=== PATIENT | female | born 1950 | race Caucasian/White ===

== ENCOUNTER 2025-02-10 08:51 | Outpatient (REF) | payer MEDICARE, MEDICAID, SELFPAY ==
--- OUTSIDE RECORDS SUMMARY | 2025-02-10 09:34 | XMS_ITS | Encounter Summary ---
Author Organization [facility] Address [address] [place] [address] Care Team Providers Care Fish Trapper Name Role Phone Luigi Andersen DO Primary Care Provider [phone] Reason for Visit * Reason Comments Follow-up Encounter Details Date Type Department Care Team (Late st Contact Info) Description 02/02/2025 11:30 AM EST Office Visit [facility] Hematology Oncology [address] [place] [phone] Bri Carroll MD [address] [place] [address] Polycythemia vera (CMS/HCC) (Primary Dx) Social History Tobacco Use Types Packs/Day Years Used Date Smoking Tobacco: Former Cigarettes Smokeless Tobacco: Never Alcohol Use Standard Drinks/Week Comments Not Currently 0 (1 standard drink = 0.6 oz pur e alcohol) Comments Unknown Sex and Gender Information Value Date Recorded Sex Assigned at Female 12/25/2024 10:38 AM EST Legal Sex Female 2:32 AM EST Gender Identity Female 12/25/2024 10:38 AM EST Sexual Orientation Not on file documented as of this encounter Last Filed Vital Signs Vital Sign Reading Time Taken Comments Blood Pressure 144/86 02/02/2025 11:31 AM EST Pulse 69 02/02/2025 11:31 AM EST Temperature 36.4 ??C (97.5 ??F) 02/02/2025 11:[address] Respiratory Rate - - Oxygen Saturation 99% 02/02/2025 11:31 AM EST Inhaled Oxygen Concentration - - Weight 67.6 kg (149 lb) 02/02/2025 11:31 AM EST Height - - Body Mass Index 24.05 01/18/2025 9:58 AM EST documented in this encounter Progress Notes * Bri Carroll MD - 02/02/2025 11:30 AM EST ONC CANCER FOLLOW UP CHIEF COMPLAINT: Follow-up IDENTIFIER:Aurelia Fletcher is a 74 y.o. female. HPI: 74-year-old female, who has some mental health issues/anxiety etc., used to smoke more than 30 years ago, patient found to have significantly elevated hemoglobin hematocrit so referred to me for further evaluation, on the workup there is evidence that patient has primary polycythemia/polycythemia vera ROS: Has been feeling fair No significant change from previous visit of 01/18/2025 PAST MEDICAL HISTORY: Hypertension Hypothyroidism Osteoporosis Osteoarthritis Psoriasis Polycythemia Varicose vein Renal cyst Hemorrhoids Multiple pulm nodule Polycythemia vera, JAK2 positive SOCIAL HISTORY: She quit smoking in 1988 She used to drink socially He is single, lives by herself 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 FAMILY HISTORY: Noncontributory Current Outpatient Medications: calcium carbonate-vitamin D 500 mg-5 mcg (200 unit) per tablet, Take 1 tablet by mouth 1 (one) timeeach day., Disp: , Rfl: hydroCHLOROthiazide (MICROZIDE) 12.5 mg capsule, Take 1 capsule (12.5 mg total) by mouth 1 (one) time each day in the morning., Disp: , Rfl: magnesium oxide (MAG-OX) 400 mg magnesium tablet, Take 1 tablet (400 mg total) by mouth 1 (one) time each day., Disp: , Rfl: polyethylene glycol (PEG) 17 gram/dose oral powder, 17 g 1 (one) time each day., Disp: , Rfl: Allergies Allergen Reactions Codeine GI intolerance PHYSICAL EXAM: Visit Vitals BP (!) 144/86 (BP Location: Left arm, Patient Position: Sitting, BP Cuff Size: Adult) Pulse 69 Temp 36.4 ??C (97.5 ??F) (Temporal) Wt 67.6 kg (149 lb) SpO2 99% BMI 24.05 kg/m?? Smoking Status Former BSA 1.76 m?? ECOG 0-1 APPEARANCE: Alert and in no acute distress EYES: nonicteric sclera pink conjunctiva ORAL CAVITY: No erythema or exudates NECK: Neck supple, no adenopathy, HEART: normal S1 and S2 LUNG: clear to auscultation bilaterally LYMPH NODES: No palpable superficial adenopathy ABDOMEN: soft, nontender and no significant organomegaly appreciated EXTREMITIES: No edema, erythema or tenderness LABS: JAK2 mutation test positive WBC 7.8, hemoglobin 17.6 g, hematocrit 58.7% and platelet count 403 Erythropoietin level 0.8 Peripheral smear showed significant erythrocytosis and very occasional immature granulocytes IMPRESSION: 1. Polycythemia vera (CMS/HCC) 74-year-old female, here for follow-up regarding her significant elevated hemoglobin hematocrit, on my workup patient found to have positive mutation for JAK2 V617 as well as peripheral smear showed significant number of leukocytosis and erythropoietin level is only 0.8,clearly her labs suggest the patient has primary polycythemia/polycythemia vera. I explained patient and her friend who is a registered retired nurse about myeloproliferative neoplasm/polycythemia, I discussed with them about therapeutic intervention, I recommend them that she should have therapy phlebotomy to keep hemoglobin less than 16 g. Has discussed with them about therapeutic agent like hydroxyurea etc. but that would not be my preference PLAN: Will start patient on monthly therapy phlebotomy for next few months, I will check her blood count in May and make another recommendation regarding duration of therapeutic phlebotomy Bri Carroll MD documented in this encounter Plan of Treatment Upcoming Encounters Date Type Department Care Team (Late st Contact Info) Description 05/17/2025 10:15 AM EDT Office Visit [facility] Hematology Oncology [address] [place] [phone] Bri Carroll MD [address] [place] [address] Scheduled Orders Name Type Priority Associated Diagnoses Orde r Schedule CBC and differential Lab Routine Polycythemia vera (CMS/HCC) Expected: 05/05/2025, Expires: 02/02/2026 documented as of this encounter Visit Diagnoses Diagnosis Polycythemia vera (CMS/HCC)- Primary documented in this encounter Care Teams Fish Trapper Relationship Specialty Start Date End Date Luigi Andersen DO [address] [place] [phone] PCP - General Internal Medicine 10/12/24 documented as of this encounter
--- OUTSIDE RECORDS SUMMARY | 2025-02-10 09:34 | XMS_ITS | Clinical Summary ---
Author Organization [facility] Address [address] [place] [address] Phone Care Team Providers Care Weatherization Coordinator Name Role Phone Luigi Andersen DO Primary Care Provider Allergies Active Allergy Reactions Criticality Noted Date Comments Codeine GI intolerance 01/18/2025 Medications hydroCHLOROthia zide (MICROZIDE) 12.5 mg capsule Take 1 capsule (12.5 mg total) by mouth 1 (one) time each day in the morning. Active calcium carbonate-vitam in D 500 mg-5 mcg (200 unit) per tablet Take 1 tablet by mouth 1 (one) time each day. Active magnesium oxide (MAG-OX) 400 mg magnesium tablet Take 1 tablet (400 mg total) by mouth 1 (one) time each day. Active polyethylene glycol (PEG) 17 gram/dose oral powder 17 g 1 (one) time each day. Active Encounters Date Type Department Care Team Description 02/02/2025 11:30 AM EST Office Visit [facility] Hematology Oncology [address] [place] [phone] Bri Carroll MD Polycythemia vera (CMS/HCC) (Primary Dx) 01/18/2025 10:00 AM EST Office Visit [facility] Hematology Oncology [address] [place] [phone] Bri Carroll MD Elevated hemoglobin (CMS/HCC); Elevated hematocrit; Chronic myeloproliferative disease (CMS/HCC) from Last 3 Months Surgical History Surgery Date Site/Laterality Comments HYSTERECTOMY 12/02/1989 - 12/01/1990 KIDNEY SURGERY 12/02/1988 - 12/01/1989 REMOVAL VIRTUAL COLONSCOPY (DIAG.) Medical History Medical History Date Comments Lung nodule Osteoporosis Colon polyps Psoriasis Hypertension Hyperthyroidism Polycythemia Family History Medical History Relation Name Comments Bone cancer Brother Leukemia Mother Relation Name Status Comments Brother Mother Social History Tobacco Use Types Packs/Day Years Used Date Smoking Tobacco: Former Cigarettes Smokeless Tobacco: Never Tobacco Cessation:Counseling Given: Not Answered Alcohol Use Standard Drinks/Week Comments Not Currently 0 (1 standard drink = 0.6 oz pur e alcohol) Comments Unknown Sex and Gender Information Value Date Recorded Sex Assigned at Female 12/25/2024 10:38 AM EST Legal Sex Female 2:32 AM EST Gender Identity Female 12/25/2024 10:38 AM EST Sexual Orientation Not on file Obstetrics History Last Filed Vital Signs Vital Sign Reading Time Taken Comments Blood Pressure 144/86 02/02/2025 11:31 AM EST Pulse 69 02/02/2025 11:31 AM EST Temperature 36.4 ??C (97.5 ??F) 02/02/2025 11:[address] Respiratory Rate - - Oxygen Saturation 99% 02/02/2025 11:31 AM EST Inhaled Oxygen Concentration - - Weight 67.6 kg (149 lb) 02/02/2025 11:31 AM EST Height 167.6 cm (5' 6 ) 01/18/2025 9:58 AM EST Body Mass Index 24.05 01/18/2025 9:58 AM EST Plan of Treatment Upcoming Encounters Date Type Department Care Team (Late st Contact Info) Description 05/17/2025 10:15 AM EDT Office Visit [facility] Hematology Oncology [address] [place] [phone] Bri Carroll MD [address] [place] [address] Health Maintenance Due Date Last Done Comments Breast Cancer Screening 1950 DTaP,Tdap,and Td Vaccines (1 - Tdap) 1969 Pneumococcal Vaccine: 50+ Years (1 of 2 - PCV) 1969 Zoster Vaccines (1 of 2) 1969 Colorectal Cancer Screening: Colonoscopy 11/04/2022 Depression Screening 11/04/2022 Falls Risk Assessment 11/04/2022 Hepatitis C Screening 11/04/2022 Medicare Annual Wellness Visit 11/04/2022 Osteoporosis Screening (Bone Density Screening) 11/04/2022 Social Influencers of Health Screening 11/04/2022 Hypertension/CHF/CAD Annual BMP Blood Test 10/12/2025 10/12/2024 Cholesterol Screening (Lipid Panel) 10/12/2029 10/12/2024 Influenza Vaccine Completed 08/19/2024, , 09/05/2022, Additional history exists COVID-19 Vaccine Completed 08/20/2024, 05/2023, 10/23/2022, Additional history exists RSV Immunization Patients 60+ Years Old Completed 10/16/2024 HIB Vaccines Aged Out No longer eligi ble based on patient's age to complete this topic HPV Vaccines Aged Out No longer eligi ble based on patient's age to complete this topic Hepatitis A Vaccines Aged Out No long er eligible based on patient's age to complete this topic Hepatitis B Vaccines Aged Out No long er eligible based on patient's age to complete this topic IPV Vaccines Aged Out No longer eligi ble based on patient's age to complete this topic MMR Vaccines Aged Out No longer eligi ble based on patient's age to complete this topic Meningococcal ACWY Vaccine Aged Out N o longer eligible based on patient's age to complete this topic Meningococcal B Vacine Aged Out No lo nger eligible based on patient's age to complete this topic RSV Immunization Patients Under 20 months Aged Out No longer eligible based on patient's age to complete this topic Varicella Vaccines Aged Out No longer eligible based on patient's age to complete this topic Procedures Procedure Name Priority Date/Time Associated Diagnosis Comments CBC WITH AUTO DIFFERENTIAL Routine 01/18/2025 10:30 AM EST Elevated hemoglobin (CMS/HCC) Elevated hematocrit JAK2 GENE, V617F MUTATION, QUANTITATIVE, MOLECULAR STUDY Routine 01/18/2025 10:30 AM EST Elevated hemoglobin (CMS/HCC) Elevated hematocrit Chronic myeloproliferative disease (CMS/HCC) ERYTHROPOIETIN Routine 01/18/2025 10:30 AM EST Elevated hemoglobin (CMS/HCC) Elevated hematocrit CBC AND DIFFERENTIAL Routine 01/18/2025 10:30 AM EST Elevated hemoglobin (CMS/HCC) Elevated hematocrit CBC WITH AUTO DIFFERENTIAL Routine 12/14/2024 9:21 AM EST Hyperthyroidism Polycythemia THYROGLOBULIN ANTIBODY Routine 9:21 AM EST Hyperthyroidism Polycythemia TRIIODOTHYRONINE TOTAL Routine 9:21 AM EST Hyperthyroidism Polycythemia THYROXINE FREE Routine 12/14/2024 9:21 AM EST Hyperthyroidism Polycythemia CBC AND DIFFERENTIAL Routine 12/14/2024 9:21 AM EST Hyperthyroidism Polycythemia THYROID STIMULATING HORMONE Routine 12/14/2024 9:21 AM EST Hyperthyroidism Polycythemia COMPREHENSIVE METABOLIC PANEL Routine 10/12/2024 10:12 AM EST Laboratory tests ordered as part of a complete physical exam (CPE) IGT (impaired glucose tolerance) HTN (hypertension) Urinary urgency LIPID PANEL WITH REFLEX TO DIRECT LDL Routine 10/12/2024 10:12 AM EST Laboratory tests ordered as part of a complete physical exam (CPE) IGT (impaired glucose tolerance) HTN (hypertension) Urinary urgency from Last 3 Months or Most Recently Relevant to Health Maintenance Results * JAK2 gene, V617F mutation, quantitative, molecular study (01/18/2025 10:30 AM EST) Scan Result See Scanned Result 01/25/2025 7:23 AM EST [facility] Blood Venous blood specimen / Unknown Venipuncture / Unknown 01/18/2025 10:30 AM EST 01/18/2025 11:21 AM EST us Bri Carroll MD LAB MOLECULAR DIAGNOSTICS OR DERABLES Final Result [facility] * (ABNORMAL) CBC auto differential (01/18/2025 10:30 AM EST) Only the most recent of2 resultswithin the time period is included. [facility] Signature WBC 7.8 4.8 - 10.8 K/mcL LAB HEMETOLOGY METHOD 01/18/2025 11:45 AM [facility] RBC 6.90(H) 3.80 - 4.80 M/mcL LAB HEMETOLOGY METHOD 01/18/2025 11:45 AM [facility] Hemoglobin 17.6(H) 11.5 - 16.0 g/dL LAB HEMETOLOGY METHOD 01/18/2025 11:45 AM [facility] Hematocrit 58.7(H) 35.0 - 47.0 % LAB HEMETOLOGY METHOD 01/18/2025 11:45 AM [facility] MCV 84.7 79.0 - 98.0 FL LAB HEMETOLOGY METHOD 01/18/2025 11:45 AM [facility] MCH 25.4(L) 27.0 - 32.0 pcg LAB HEMETOLOGY METHOD 01/18/2025 11:45 AM [facility] MCHC 30.0(L) 32.0 - 37.0 g/dL LAB HEMETOLOGY METHOD 01/18/2025 11:45 AM [facility] RDW 18.5(H) 11.0 - 15.0 % LAB HEMETOLOGY METHOD 01/18/2025 11:45 AM [facility] Platelets 403(H) 130 - 400 K/mcL LAB HEMETOLOGY METHOD 01/18/2025 11:45 AM [facility] MPV 10.6 7.0 - 11.0 FL LAB HEMETOLOGY METHOD 01/18/2025 11:45 AM [facility] NRBC 0.0 <1.0 % LAB HEMETOLOGY METHOD 01/18/2025 11:45 AM [facility] NRBC Absolute 0.00 <0.10 K/mcL LAB HEMETOLOGY METHOD 01/18/2025 11:45 AM [facility] Neutrophils Relative 63.9 % LAB HEMETOLOGY METHOD 01/18/2025 11:45 AM [facility] Lymphocytes Relative 22.7 % LAB HEMETOLOGY METHOD 01/18/2025 11:45 AM [facility] Monocytes Relative 9.7 % LAB HEMETOLOGY METHOD 01/18/2025 11:45 AM [facility] Eosinophils Relative 2.4 % LAB HEMETOLOGY METHOD 01/18/2025 11:45 AM [facility] Basophils Relative 0.8 % LAB HEMETOLOGY METHOD 01/18/2025 11:45 AM [facility] Immature Granulocytes Relative 0.5 % LAB HEMETOLOGY METHOD 01/18/2025 11:45 AM [facility] Neutrophils Absolute 4.97 1.50 - 7.00 K/mcL LAB HEMETOLOGY METHOD 01/18/2025 11:45 AM [facility] Lymphocytes Absolute 1.76 1.00 - 5.00 K/mcL LAB HEMETOLOGY METHOD 01/18/2025 11:45 AM [facility] Monocytes Absolute 0.75 0.20 - 1.00 K/mcL LAB HEMETOLOGY METHOD 01/18/2025 11:45 AM [facility] Eosinophils Absolute 0.19 0.00 - 0.50 K/mcL LAB HEMETOLOGY METHOD 01/18/2025 11:45 AM [facility] Basophils Absolute 0.06 0.00 - 0.20 K/mcL LAB HEMETOLOGY METHOD 01/18/2025 11:45 AM [facility] Immature Granulocytes Absolute 0.04(H) 0.00 - 0.03 K/mcL LAB HEMETOLOGY METHOD 01/18/2025 11:45 AM [facility] Blood Venous blood specimen / Unknown Venipuncture / Unknown 01/18/2025 10:30 AM EST 01/18/2025 11:21 AM EST Bri Carroll MD LAB BLOOD ORDERABLES Final R esult Performing Organization Address [facility]/ZIP Co de Phone Number [facility] ([facility]) [facility] [address] [place] [address], * (ABNORMAL) Erythropoietin (01/18/2025 10:30 AM EST) Erythropoietin 0.8(L) 2.6 - 18.5 mIU/mL 01/20/2025 10:28 AM EST [facility] Comment: Test performed at [facility], [address] , [place], [place] ??[address] ? [phone] Cassie Cowan MD, PhD - [employer] Blood Venous blood specimen / Unknown Venipuncture / Unknown 01/18/2025 10:30 AM EST 01/18/2025 11:21 AM EST Bri Carroll MD LAB BLOOD ORDERABLES Final R esult Performing Organization Address [facility] Co de Phone Number [facility] [address] [place] [address] * Thyroglobulin antibody (12/14/2024 9:21 AM EST) Antithyroglobulin Ab <15.0 <=60.0 I Unit/mL LAB CHEMISTRY METHOD 12/14/2024 4:47 PM EST [facility] Blood Venous blood specimen / Unknown Venipuncture / Unknown 12/14/2024 9:21 AM EST 12/14/2024 9:21 AM EST Nicolas Malcolm LAB BLOOD ORDERABLES Final Resul t [facility] [address] [place] [address], * Triiodothyronine total (12/14/2024 9:21 AM EST) T3, Total 126.94 60.00 - 181.00 ng/dL LAB CHEMISTRY METHOD 12/14/2024 11:55 AM EST [facility] Blood Venous blood specimen / Unknown Venipuncture / Unknown 12/14/2024 9:21 AM EST 12/14/2024 9:21 AM EST Nicolas Malcolm LAB BLOOD ORDERABLES Final Resul t [facility] [address] [place] [address], * Thyroid stimulating hormone (12/14/2024 9:21 AM EST) TSH 0.63 0.40 - 4.00 mcIU/mL LAB CHEMISTRY METHOD 12/14/2024 11:56 AM EST [facility] Blood Venous blood specimen / Unknown Venipuncture / Unknown 12/14/2024 9:21 AM EST 12/14/2024 9:21 AM EST Nicolas Malcolm LAB BLOOD ORDERABLES Final Resul t [facility] [address] [place] [address], [place] [phone] * Thyroxine free (12/14/2024 9:21 AM EST) Free T4 1.28 0.70 - 1.80 ng/dL LAB CHEMISTRY METHOD 12/14/2024 1:32 PM EST [facility] Blood Venous blood specimen / Unknown Venipuncture / Unknown 12/14/2024 9:21 AM EST 12/14/2024 9:21 AM EST Nicolas Yun LAB BLOOD ORDERABLES Final Resul t Performing Organization Address City/[facility]/ZIP Co de Phone Number [facility] [address] [place] [address], [place] [phone] * Lipid panel with reflex to direct LDL (10/12/2024 10:12 AM EST) Cholesterol 166 0 - 200 mg/dL LAB CHEMISTRY METHOD 10/12/2024 12:02 PM [facility] Triglycerides 97 0 - 150 mg/dL LAB CHEMISTRY METHOD 10/12/2024 12:02 PM [facility] HDL 77 >=40 mg/dL LAB CHEMISTRY METHOD 10/12/2024 12:02 PM [facility] LDL Calculated 70 0 - 100 mg/dL LAB CHEMISTRY METHOD 10/12/2024 12:02 PM [facility] VLDL Cholesterol Anthony 19.4 mg/dL LAB CHEMISTRY METHOD 10/12/2024 12:02 PM [facility] Non HDL Chol. (LDL+VLDL) 89 <145 mg/dL LAB CHEMISTRY METHOD 10/12/2024 12:02 PM [facility] Chol/HDL Ratio 2.2 0.0 - 4.4 LAB CHEMISTRY METHOD 10/12/2024 12:02 PM [facility] Blood Venous blood specimen / Unknown Venipuncture / Unknown 10/12/2024 10:12 AM EST 10/12/2024 10:13 AM EST Nicolas Yun LAB BLOOD ORDERABLES Final Resul t Performing Organization Address [facility]/ZIP Co de Phone Number [facility] [address] [place] [address], [place] [phone] * (ABNORMAL) Comprehensive metabolic panel (10/12/2024 10:12 AM EST) Sodium 137 133 - 145 mmol/L LAB CHEMISTRY METHOD 10/12/2024 12:02 PM [facility] Potassium 4.6 3.5 - 5.5 mmol/L LAB CHEMISTRY METHOD 10/12/2024 12:02 PM [facility] Chloride 101 96 - 110 mmol/L LAB CHEMISTRY METHOD 10/12/2024 12:02 PM [facility] CO2 30 21 - 32 mmol/L LAB CHEMISTRY METHOD 10/12/2024 12:02 PM [facility] Anion Gap 6 3 - 11 LAB CHEMISTRY METHOD 10/12/2024 12:02 PM [facility] Glucose 86 70 - 100 mg/dL LAB CHEMISTRY METHOD 10/12/2024 12:02 PM [facility] BUN 22 5 - 25 mg/dL LAB CHEMISTRY METHOD 10/12/2024 12:02 PM [facility] Creatinine 0.87 0.50 - 1.10 mg/dL LAB CHEMISTRY METHOD 10/12/2024 12:02 PM [facility] eGFR 70 >=60 mL/min/1. 73m2 LAB CHEMISTRY METHOD 10/12/2024 12:02 PM [facility] Comment:Calculation based on the??Chronic Kidney Disease Epidemiology Collaboration (CKD-EPI) equation refit??without adjustment for race. BUN/Creatinine Ratio 25.3 LAB CHEMISTRY METHOD 10/12/2024 12:02 PM [facility] Calcium 10.9(H) 8.5 - 10.5 mg/dL LAB CHEMISTRY METHOD 10/12/2024 12:02 PM [facility] AST (SGOT) 21 10 - 42 unit/L LAB CHEMISTRY METHOD 10/12/2024 12:02 PM [facility] ALT (SGPT) 19 10 - 60 unit/L LAB CHEMISTRY METHOD 10/12/2024 12:02 PM [facility] Alkaline Phosphatase 91 42 - 121 unit/L LAB CHEMISTRY METHOD 10/12/2024 12:02 PM EST [facility] Total Protein 6.8 6.0 - 8.0 g/dL LAB CHEMISTRY METHOD 10/12/2024 12:02 PM EST [facility] Albumin 3.9 3.2 - 5.0 g/dL LAB CHEMISTRY METHOD 10/12/2024 12:02 PM EST [facility] Total Bilirubin 1.0 0.0 - 1.4 mg/dL LAB CHEMISTRY METHOD 10/12/2024 12:02 PM EST [facility] Blood Venous blood specimen / Unknown Venipuncture / Unknown 10/12/2024 10:12 AM EST 10/12/2024 10:13 AM EST us Nicolas Malcolm LAB BLOOD ORDERABLES Final Resul t [facility] [address] [place] [address], from Last 3 Months or Most Recently Relevant to Health Maintenance Insurance MEDICAID - [place] MEDICARE Care Teams Weatherization Coordinator Relationship Specialty Start Date End Date Luigi Andersen DO [address] [place] [address] [phone] PCP - General Internal Medicine 10/12/24
--- OUTSIDE RECORDS SUMMARY | 2025-02-10 09:35 | XMS_ITS ---
Author Name [facility] Organization Unknown History of Medication Use Medication Directions Dispensed Refills Start Date End Date Stat Procto-Med HC 2.5 % topical cream perineal applicator active oxycodone 5 mg tablet 02/26/2024 completed Allergies Allergen Reaction Severity Comment Documented Date Source Statu s CODEINE ENS_AONECT Problems Problem Status Onset Date Problem Type Date of Resoluti on Source Synovitis active 2024-02-26 ProblemAct ENS_AONE CT Encounters Encounter Type Encounter Reason Primary Diagnosis Location Date Ambulatory [facility] [place] 02/26/2024 Ambulatory [facility] [place] 02/21/2024
--- OUTSIDE RECORDS SUMMARY | 2025-02-10 09:35 | XMS_ITS | Encounter Summary ---
Author Organization [facility] Address [address] [place] [address] Care Team Providers Care Vice President Global Advertising Sales Name Role Phone NathalyLuigi Primary Care Provider [phone] Reason for Visit * Reason Comments Consult * Consultation (Routine) - Closed Specialty Diagnoses / Procedures Referred By Alli lee Referred To Contact Hematology and Oncology Diagnoses Elevated hemoglobin (CMS/HCC) Elevated hematocrit Luigi Andersen DO [address] [place] [phone] Phone: tel: fax: Referral ID Status Reason Start Date Expiration Date V isits Requested Visits Authorized [id number] Closed Specialty Services Required 12/28/2024 12/28/2025 1 1 Encounter Details Date Type Department Care Team (Latest Contact Info) Description 01/18/2025 10:00 AM EST Office Visit [facility] Hematology Oncology [address] [place] [phone] Bri Carroll MD [address] [place] [address] Elevated hemoglobin (CMS/HCC); Elevated hematocrit; Chronic myeloproliferative disease (CMS/HCC) Social History Tobacco Use Types Packs/Day Years [...] Sign Reading Time Taken Comments Blood Pressure 154/83 01/18/2025 9:58 AM EST Pulse 69 01/18/2025 9:58 AM EST Temperature 36.7 ??C (98.1 ??F) 01/18/2025 9:58 AM ES T Respiratory Rate - - Oxygen Saturation 99% 01/18/2025 9:58 AM EST Inhaled Oxygen Concentration - - Weight 67.1 kg (148 lb) 01/18/2025 9:58 AM EST Height 167.6 cm (5' 6 ) 01/18/2025 9:58 AM EST Body Mass Index 23.89 01/18/2025 9:58 AM EST documented in this encounter Progress Notes * Bri Carroll MD - 01/18/2025 10:00 AM EST ONC CANCER INITIAL VISIT Dear Nicolas, Thank you very much for referring this patient for consultation. HPI: Patient is a 74-year-old female, who quit smoking in 1988, patient had significant osteoarthritis, anxiety etc., patient found to have persistently elevated hemoglobin hematocrit of unclearetiology so patient referred to me to rule out any significant myeloproliferative disease. Patient denies any prior history of history of hematological issues ROS: GENERAL: No anorexia, early satiety, fever, chills, night sweats or any significant fatigue NECK: No lumps, goiter, pain or significant neck swelling RESPIRATORY: No cough or shortness of breath CARDIOVASCULAR: No chest pain. GI: No abdominal discomfort, blood in stools or black stools MUSCULOSKELETAL: Generalized arthritis specially in the left shoulder HEMATOLOGY/LYMPHOLOGY No prolonged bleeding, easy bruisability or swollen nodes Other Systems review is non contributory PAST MEDICAL HISTORY: Hypertension Hypothyroidism Osteoporosis Osteoarthritis Psoriasis Polycythemia Varicose vein Renal cyst Hemorrhoids Multiple pulm nodule PAST SURGICAL HISTORY: Past Surgical History: Procedure Laterality Date HYSTERECTOMY 1989 KIDNEY SURGERY 1988 REMOVAL VIRTUAL COLONSCOPY (DIAG.) SOCIAL HISTORY: She quit smoking in 1988 She used to drink socially He is single, lives by herself 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 Smoking Status Former BSA 1.76 m?? ECOG 0-1 APPEARANCE: Alert and oriented in no acute distress EYES: nonicteric sclera pink conjunctiva ORAL CAVITY: No erythema or exudates NECK: Neck supple, no cervical supraclavicular adenopathy, HEART: normal S1 and S2 LUNG: clear to auscultation bilaterally LYMPH NODES: No palpable superficial adenopathy ABDOMEN: soft, nontender and no splenomegaly/organomegaly appreciated. EXTREMITIES: No significant edema, erythema or tenderness LABS: Lab Results Component Value Date WBC 7.8 12/14/2024 HGB 17.2 (H) 12/14/2024 HCT 57.2 (H) 12/14/2024 MCV 88.1 12/14/2024 PLT 385 12/14/2024 ASSESSMENT 1. Elevated hemoglobin (CMS/HCC) 2. Elevated hematocrit Patient is 74-year-old female, who found to have mild to moderate persistent elevated hemoglobin hematocrit in last few complete blood count so patient referred to me to rule out myeloproliferative neoplasm, I told patient possible differential diagnosis of her elevated hemoglobin and recurrent include 1. Neoplasm/polycythemia vera 2. Anxiety stress aches and pain etc. 3. History of smoking, pulmonary nodule, occult malignancy etc. I told patient I would like to review peripheral smear as well as check erythropoietin level, JAK2 mutation test etc. and see her back in next week for any further intervention, I gave her reassurance that I doubt she have any significant myeloproliferative neoplasm PLAN: Above labs today, return to office in couple weeks for any further intervention Bri Carroll MD cc: Luigi Andersen DO documented in this encounter Plan of Treatment Upcoming Encounters Date Type Department Care Team (Late st Contact Info) Description 05/17/2025 10:15 AM EDT Office Visit [facility] Hematology Oncology [address] [place] [address] Bri Carroll MD [address] [place] [address] documented as of this encounter Results * JAK2 gene, V617F mutation, quantitative, molecular study (01/18/2025 10:30 AM EST) Scan Result See Scanned Result 01/25/2025 7:23 AM EST [facility] Blood Venous blood specimen / Unknown Venipuncture / Unknown 01/18/2025 10:30 AM EST 01/18/2025 11:21 AM EST Bri Carroll MD LAB MOLECULAR DIAGNOSTICS OR DERABLES Final Result [facility] * (ABNORMAL) Erythropoietin (01/18/2025 10:30 AM EST) Erythropoietin 0.8(L) 2.6 - 18.5 mIU/mL 01/20/2025 10:28 AM EST [facility] Comment: Test performed at [facility], [address], [place], [place] [address] ? [phone] Cassie Cowan MD, PhD - Wearing Apparel Presser Blood Venous blood specimen / Unknown Venipuncture / Unknown 01/18/2025 10:30 AM EST 01/18/2025 11:21 AM EST us Bri Carroll MD LAB BLOOD ORDERABLES Final R [place] [address] documented in this encounter Visit Diagnoses Diagnosis Elevated hemoglobin (CMS/HCC) Elevated hematocrit Chronic myeloproliferative disease (CMS/HCC) documented in this encounter Historical Medications * This list may reflect changes made after this encounter. polyethylene glycol (PEG) 17 gram/dose oral powder 17 g 1 (one) time each day. magnesium oxide (MAG-OX) 400 mg magnesium tablet Take 1 tablet (400 mg total) by mouth 1 (one) time each day. calcium carbonate-vitamin D 500 mg-5 mcg (200 unit) per tablet Take 1 tablet by mouth 1 (one) time each day. hydroCHLOROthiazi de (MICROZIDE) 12.5 mg capsule Take 1 capsule (12.5 mg total) by mouth 1 (one) time each day in the morning. added in this encounter Orders Outpatient Referral Count Last Ordered Date Fir st Ordered Date AMB REFERRAL TO HEMATOLOGY / ONCOLOGY 1 documented in this encounter Care Teams Vice President Global Advertising Sales Relationship Specialty Start Date End Date Luigi Andersen DO [address] [place] [phone] PCP - General Internal Medicine 10/12/24 documented as of this encounter
== END 2025-02-10 08:52 | disposition home or self-care (01) ==
LOC: HO.BBR 08:51
PROVIDERS: PCP Internal Medicine; Visit Provider Internal Medicine
DX: D45 Polycythemia vera (principal)
CPT/HCPCS: 85014; 85018; 99195

== ENCOUNTER 2025-03-18 08:56 | Outpatient (REF) | payer MEDICARE, MEDICAID, SELFPAY ==
--- OUTSIDE RECORDS SUMMARY | 2025-03-18 09:42 | XMS_ITS | Clinical Summary ---
Author Organization [address] [facility] Address [address] [place] [address] Phone Care Team Providers Care Fit Model Name Role Phone Luigi Andersen DO Primary Care Provider [phone] Allergies Active Allergy Reactions Criticality Noted Date [...] Encounters Date Type Department Care Team Description 02/18/2025 Telephone Gastroenterology - [address] [phone] Marva Paez MD CONSULT 02/02/2025 11:30 AM EST Office Visit [facility] Hematology Oncology [address] [place] [phone] Bri Carroll MD Polycythemia vera (CMS/HCC V24, CMS/HCC V28) (Primary Dx) 01/18/2025 10:00 AM EST Office Visit [facility] Hematology Oncology [address] [place] [phone] Bri Carroll MD Elevated hemoglobin (CMS/HCC V24); Elevated hematocrit; Chronic myeloproliferative disease (CMS/HCC V24, CMS/HCC V28) from Last 3 Months Surgical History Surgery [...] Care Team (Late st Contact Info) Description 03/29/2025 10:10 AM EDT Office Visit Gastroenterology - 299 [facility] [address] [phone] Anahy Bustamante, OIL PUMP STATION OPERATOR CHIEF [address] [address] 05/17/2025 10:15 AM EDT Office Visit [facility] Hematology Oncology [address] [place] [phone] Bri Carroll MD [address] [place] [address] Health Maintenance Due Date Last Done Comments DTaP,Tdap,and Td Vaccines (1 - Tdap) 1969 [...] 05/2023, 10/23/2022, Additional history exists RSV Immunization Adult Patients Completed 10/16/2024 HIB Vaccines Aged Out No [...] age to complete this topic Meningococcal B Vaccine Aged Out No l onger eligible based on patient's age to complete this topic RSV Immunization Patients Under 20 months Aged Out No longer eligible based on patient's age to complete this topic Varicella Vaccines Aged Out No longer eligible based on patient's age to complete this topic Procedures Procedure Name Priority Date/Time Associated Diagnosis Comments CBC WITH AUTO DIFFERENTIAL Routine 01/18/2025 10:30 AM EST Elevated hemoglobin (CMS/HCC V24) Elevated hematocrit JAK2 GENE, V617F MUTATION, QUANTITATIVE, MOLECULAR STUDY Routine 01/18/2025 10:30 AM EST Elevated hemoglobin (CMS/HCC V24) Elevated hematocrit Chronic myeloproliferative disease (CMS/HCC V24, CMS/HCC V28) ERYTHROPOIETIN Routine 01/18/2025 10:30 AM EST Elevated hemoglobin (CMS/HCC V24) Elevated hematocrit CBC AND DIFFERENTIAL Routine 01/18/2025 10:30 AM EST Elevated hemoglobin (CMS/HCC V24) Elevated hematocrit COMPREHENSIVE METABOLIC PANEL Routine 10/12/2024 10:12 AM [...] quantitative, molecular study (01/18/2025 10:30 AM EST) Pathologist [facility] Scan Result See Scanned Result 01/25/2025 7:23 AM EST [facility] Blood Venous blood specimen / Unknown Venipuncture / Unknown 01/18/2025 10:30 AM EST 01/18/2025 11:21 AM EST us Bri Carroll MD LAB MOLECULAR DIAGNOSTICS OR DERABLES Final Result [facility] * (ABNORMAL) CBC auto differential (01/18/2025 10:30 AM EST) Pathologist [facility] WBC 7.8 4.8 - 10.8 K/mcL LAB HEMETOLOGY METHOD 01/18/2025 11:45 AM [facility] RBC 6.90(H) 3.80 - 4.80 M/mcL LAB HEMETOLOGY METHOD 01/18/2025 11:45 AM [facility] Hemoglobin 17.6(H) 11.5 - 16.0 g/dL LAB HEMETOLOGY METHOD 01/18/2025 11:45 AM [facility] Hematocrit 58.7(H) 35.0 - 47.0 % LAB HEMETOLOGY METHOD 01/18/2025 11:45 AM [facility] MCV 84.7 79.0 - 98.0 FL LAB HEMETOLOGY METHOD 01/18/2025 11:45 AM [facility] MCH 25.4(L) 27.0 - 32.0 pcg LAB HEMETOLOGY METHOD 01/18/2025 11:45 AM [facility] MCHC 30.0(L) 32.0 - 37.0 g/dL LAB HEMETOLOGY METHOD 01/18/2025 11:45 AM [facility] RDW 18.5(H) 11.0 - 15.0 % LAB HEMETOLOGY METHOD 01/18/2025 11:45 AM [facility] Platelets 403(H) 130 - 400 K/mcL LAB HEMETOLOGY METHOD 01/18/2025 11:45 AM [facility] MPV 10.6 7.0 - 11.0 FL LAB HEMETOLOGY METHOD 01/18/2025 11:45 AM [facility] NRBC 0.0 <1.0 % LAB HEMETOLOGY METHOD 01/18/2025 11:45 AM [facility] NRBC Absolute 0.00 <0.10 K/mcL LAB HEMETOLOGY METHOD 01/18/2025 11:45 AM [facility] Neutrophils Relative 63.9 % LAB HEMETOLOGY METHOD 01/18/2025 11:45 AM [facility] Lymphocytes Relative 22.7 % LAB HEMETOLOGY METHOD 01/18/2025 11:45 AM [facility] Monocytes Relative 9.7 % LAB HEMETOLOGY METHOD 01/18/2025 11:45 AM [facility] Eosinophils Relative 2.4 % LAB HEMETOLOGY METHOD 01/18/2025 11:45 AM [facility] Basophils Relative 0.8 % LAB HEMETOLOGY METHOD 01/18/2025 11:45 AM [facility] Immature Granulocytes Relative 0.5 % LAB HEMETOLOGY METHOD 01/18/2025 11:45 AM [facility] Neutrophils Absolute 4.97 1.50 - 7.00 K/mcL LAB HEMETOLOGY METHOD 01/18/2025 11:45 AM [facility] Lymphocytes Absolute 1.76 1.00 - 5.00 K/mcL LAB HEMETOLOGY METHOD 01/18/2025 11:45 AM [facility] Monocytes Absolute 0.75 0.20 - 1.00 K/mcL LAB HEMETOLOGY METHOD 01/18/2025 11:45 AM [facility] Eosinophils Absolute 0.19 0.00 - 0.50 K/mcL LAB HEMETOLOGY METHOD 01/18/2025 11:45 AM [facility] Basophils Absolute 0.06 0.00 - 0.20 K/mcL LAB HEMETOLOGY METHOD 01/18/2025 11:45 AM [facility] Immature Granulocytes Absolute 0.04(H) 0.00 - 0.03 K/mcL LAB HEMETOLOGY METHOD 01/18/2025 11:45 AM [facility] Blood Venous blood specimen / Unknown Venipuncture / Unknown 01/18/2025 10:30 AM EST 01/18/2025 11:21 AM EST us Bri Carroll MD LAB BLOOD ORDERABLES Final R esult [facility]) [facility] [address] [place] [address], [place] [phone] * (ABNORMAL) Erythropoietin (01/18/2025 10:30 AM EST) Erythropoietin 0.8(L) 2.6 - 18.5 mIU/mL 01/20/2025 10:28 AM EST [facility] Comment: Test performed at [facility], [address], [place], [place] [address] ? [phone] Cassie Cowan MD, PhD - Prefabricated Houses Trimmer Blood Venous blood specimen / Unknown Venipuncture / Unknown 01/18/2025 10:30 AM EST 01/18/2025 11:21 AM EST Bri Carroll MD LAB BLOOD ORDERABLES Final R esult [facility] [address] [place] [address] * Lipid panel with reflex to direct LDL (10/12/2024 10:12 AM EST) Cholesterol 166 0 - 200 mg/dL LAB CHEMISTRY METHOD 10/12/2024 12:02 PM [facility] Triglycerides 97 0 - 150 mg/dL LAB CHEMISTRY METHOD 10/12/2024 12:02 PM EST [facility] HDL 77 >=40 mg/dL LAB CHEMISTRY METHOD 10/12/2024 12:02 PM [facility] LDL Calculated 70 0 - 100 mg/dL LAB CHEMISTRY METHOD 10/12/2024 12:02 PM [facility] VLDL Cholesterol Anthony 19.4 mg/dL LAB CHEMISTRY METHOD 10/12/2024 12:02 PM [facility] Non HDL Chol. (LDL+VLDL) 89 <145 mg/dL LAB CHEMISTRY METHOD 10/12/2024 12:02 PM [facility] Chol/HDL Ratio 2.2 0.0 - 4.4 LAB CHEMISTRY METHOD 10/12/2024 12:02 PM [facility] Blood Venous blood specimen / Unknown Venipuncture / Unknown 10/12/2024 10:12 AM EST 10/12/2024 10:13 AM EST us Nicolas Malcolm LAB BLOOD ORDERABLES Final Resul t [facility] [address] [place] [address], * (ABNORMAL) Comprehensive metabolic panel (10/12/2024 10:12 AM EST) Sodium 137 133 - 145 mmol/L LAB CHEMISTRY METHOD 10/12/2024 12:02 PM [facility] Potassium 4.6 3.5 - 5.5 mmol/L LAB CHEMISTRY METHOD 10/12/2024 12:02 PM [facility] Chloride 101 96 - 110 mmol/L LAB CHEMISTRY METHOD 10/12/2024 12:02 PM [facility] CO2 30 21 - 32 mmol/L LAB CHEMISTRY METHOD 10/12/2024 12:02 PM [facility] Anion Gap 6 3 - 11 LAB CHEMISTRY METHOD 10/12/2024 12:02 PM [facility] Glucose 86 70 - 100 mg/dL LAB CHEMISTRY METHOD 10/12/2024 12:02 PM [facility] BUN 22 5 - 25 mg/dL LAB CHEMISTRY METHOD 10/12/2024 12:02 PM [facility] Creatinine 0.87 0.50 - 1.10 mg/dL LAB CHEMISTRY METHOD 10/12/2024 12:02 PM [facility] eGFR 70 >=60 mL/min/1. 73m2 LAB CHEMISTRY METHOD 10/12/2024 12:02 PM [facility] Comment:Calculation based on the??Chronic Kidney Disease Epidemiology Collaboration (CKD-EPI) equation refit??without adjustment for race. BUN/Creatinine Ratio 25.3 LAB CHEMISTRY METHOD 10/12/2024 12:02 PM [facility] Calcium 10.9(H) 8.5 - 10.5 mg/dL LAB CHEMISTRY METHOD 10/12/2024 12:02 PM [facility] AST (SGOT) 21 10 - 42 unit/L LAB CHEMISTRY METHOD 10/12/2024 12:02 PM [facility] ALT (SGPT) 19 10 - 60 unit/L LAB CHEMISTRY METHOD 10/12/2024 12:02 PM [facility] Alkaline Phosphatase 91 42 - 121 unit/L LAB CHEMISTRY METHOD 10/12/2024 12:02 PM [facility] Total Protein 6.8 6.0 - 8.0 g/dL LAB CHEMISTRY METHOD 10/12/2024 12:02 PM [facility] Albumin 3.9 3.2 - 5.0 g/dL LAB CHEMISTRY METHOD 10/12/2024 12:02 PM [facility] Total Bilirubin 1.0 0.0 - 1.4 mg/dL LAB CHEMISTRY METHOD 10/12/2024 12:02 PM [facility] Blood Venous blood specimen / Unknown Venipuncture / Unknown 10/12/2024 10:12 AM EST 10/12/2024 10:13 AM EST us Nicolas Malcolm LAB BLOOD ORDERABLES Final Resul t [facility] [address] [place] [address], from Last 3 Months or Most Recently Relevant to Health Maintenance Insurance MEDICAID - [place] MEDICARE Care Teams Fit Model Relationship Specialty Start Date End Date Luigi Andersen DO [address] [place] [phone] PCP - General Internal Medicine 10/12/24
== END 2025-03-18 08:57 | disposition home or self-care (01) ==
LOC: HO.BBR 08:56
PROVIDERS: Visit Provider Internal Medicine
DX: D45 Polycythemia vera (principal)
CPT/HCPCS: 85018; 99195

== ENCOUNTER 2025-04-19 09:06 | Outpatient (REF) | payer MEDICARE, MEDICAID, SELFPAY ==
--- OUTSIDE RECORDS SUMMARY | 2025-04-19 09:21 | XMS_ITS | Clinical Summary ---
Author Organization [address] Address [address] [place] [address] Phone Care Team Providers Care Concrete Fence Builder Name Role Phone Luigi Andersen DO Primary Care Provider [phone] Allergies Active Allergy Reactions Criticality Noted Date [...] Encounters Date Type Department Care Team Description 03/29/2025 10:10 AM EDT Office Visit Gastroenterology - [address] [phone] Anahy Bustamante, SAMMI Adenomatous polyp of colon, unspecified part of colon (Primary Dx) 02/18/2025 Telephone Gastroenterology - [address] [phone] Marva Paez MD CONSULT 02/02/2025 11:30 AM EST Office Visit [facility] Hematology Oncology [address] [place] [phone] Bri Carroll MD Polycythemia vera (CMS/HCC V24, CMS/HCC V28) (Primary Dx) from Last 3 Months Surgical History Surgery [...] EST Inhaled Oxygen Concentration - - Weight 65.8 kg (145 lb) 03/29/2025 10:01 AM EDT Height 167.6 cm (5' 6 ) 03/29/2025 10:01 AM EDT Body Mass Index 23.4 03/29/2025 10:01 AM EDT Plan of Treatment Upcoming Encounters Date Type Department Care Team (Late st Contact Info) Description 05/17/2025 10:15 AM EDT Office Visit [facility] Hematology Oncology [address] [place] [phone] Bri Carroll MD [address] [place] [address] 06/08/2025 11:00 AM EDT Appointment [facility] Endoscopy [address] [place] [phone] Marva Paez MD [address] [place] [address] Health Maintenance Due Date Last Done Comments DTaP,Tdap,and Td Vaccines (1 - Tdap) 1969 Pneumococcal Vaccine: 50+ Years (1 of 2 - PCV) 1969 Zoster Vaccines (1 of 2) 1969 Depression Screening 11/04/2022 Falls Risk Assessment 11/04/2022 Hepatitis C Screening 11/04/2022 Medicare Annual Wellness Visit 11/04/2022 Osteoporosis Screening (Bone Density Screening) 11/04/2022 Social Influencers of Health Screening 11/04/2022 COVID-19 Vaccine (7 - Pfizer risk season) 2025 08/20/2024, 09/06/2023, 10/23/2022, Additional history exists Hypertension/CHF/CAD Annual BMP Blood Test 10/12/2025 10/12/2024 Cholesterol Screening (Lipid Panel) 10/12/2029 10/12/2024 Colorectal Cancer Screening: Colonoscopy 03/31/2035 03/31/2025 Influenza Vaccine Completed 08/19/2024, , 09/05/2022, Additional history exists RSV Immunization Adult Patients [...] Procedure Name Priority Date/Time Associated Diagnosis Comments EXTERNAL COLONOSCOPY REPORT Routine 03/31/2025 2:53 PM EDT COMPREHENSIVE METABOLIC PANEL Routine 10/12/2024 10:12 AM [...] Recently Relevant to Health Maintenance Results * External Colonoscopy Report (03/31/2025 2:53 PM EDT) Anatomical Region Laterality Modality Endoscopy us Historical Provider GI~PROCEDURE ORDERABLES F inal Result * Lipid panel with reflex to direct LDL (10/12/2024 10:12 AM EST) Cholesterol 166 0 - 200 mg/dL LAB CHEMISTRY METHOD 10/12/2024 12:02 PM [facility] Triglycerides 97 0 - 150 mg/dL LAB CHEMISTRY METHOD 10/12/2024 12:02 PM [facility] HDL 77 >=40 mg/dL LAB CHEMISTRY METHOD 10/12/2024 12:02 PM [facility] LDL Calculated 70 0 - 100 mg/dL LAB CHEMISTRY METHOD 10/12/2024 12:02 PM [facility] VLDL Cholesterol Anthony 19.4 mg/dL LAB CHEMISTRY METHOD 10/12/2024 12:02 PM [facility] Non HDL Chol. (LDL+VLDL) 89 <145 mg/dL LAB CHEMISTRY METHOD 10/12/2024 12:02 PM [facility] Chol/HDL Ratio 2.2 0.0 - 4.4 LAB CHEMISTRY METHOD 10/12/2024 12:02 PM [facility] Blood Venous blood specimen / Unknown Venipuncture / Unknown 10/12/2024 10:12 AM EST 10/12/2024 10:13 AM EST us Nicolas Malcolm LAB BLOOD ORDERABLES Final Resul t [facility] [address] [place] [address], * (ABNORMAL) Comprehensive metabolic panel (10/12/2024 10:12 AM EST) Sodium 137 133 - 145 mmol/L LAB CHEMISTRY METHOD 10/12/2024 12:02 PM [facility] Potassium 4.6 3.5 - 5.5 mmol/L LAB CHEMISTRY METHOD 10/12/2024 12:02 PM [facility] Chloride 101 96 - 110 mmol/L LAB CHEMISTRY METHOD 10/12/2024 12:02 PM [facility] CO2 30 21 - 32 mmol/L LAB CHEMISTRY METHOD 10/12/2024 12:02 PM [facility] Anion Gap 6 3 - 11 LAB CHEMISTRY METHOD 10/12/2024 12:02 PM [facility] Glucose 86 70 - 100 mg/dL LAB CHEMISTRY METHOD 10/12/2024 12:02 PM [facility] BUN 22 5 - 25 mg/dL LAB CHEMISTRY METHOD 10/12/2024 12:02 PM [facility] Creatinine 0.87 0.50 - 1.10 mg/dL LAB CHEMISTRY METHOD 10/12/2024 12:02 PM [facility] eGFR 70 >=60 mL/min/1. 73m2 LAB CHEMISTRY METHOD 10/12/2024 12:02 PM [facility] Comment:Calculation based on the??Chronic Kidney Disease Epidemiology Collaboration (CKD-EPI) equation refit??without adjustment for race. BUN/Creatinine Ratio 25.3 LAB CHEMISTRY METHOD 10/12/2024 12:02 PM [facility] Calcium 10.9(H) 8.5 - 10.5 mg/dL LAB CHEMISTRY METHOD 10/12/2024 12:02 PM [facility] AST (SGOT) 21 10 - 42 unit/L LAB CHEMISTRY METHOD 10/12/2024 12:02 PM [facility] ALT (SGPT) 19 10 - 60 unit/L LAB CHEMISTRY METHOD 10/12/2024 12:02 PM [facility] Alkaline Phosphatase 91 42 - 121 unit/L LAB CHEMISTRY METHOD 10/12/2024 12:02 PM [facility] Total Protein 6.8 6.0 - 8.0 g/dL LAB CHEMISTRY METHOD 10/12/2024 12:02 PM [facility] Albumin 3.9 3.2 - 5.0 g/dL LAB CHEMISTRY METHOD 10/12/2024 12:02 PM [facility] Total Bilirubin 1.0 0.0 - 1.4 mg/dL LAB CHEMISTRY METHOD 10/12/2024 12:02 PM [facility] Blood Venous blood specimen / Unknown Venipuncture / Unknown 10/12/2024 10:12 AM EST 10/12/2024 10:13 AM EST Nicolas Malcolm LAB BLOOD ORDERABLES Final Resul t [facility] [address] [place] [address], from Last 3 Months or Most Recently Relevant to Health Maintenance Insurance [place] Care Teams Concrete Fence Builder Relationship Specialty Start Date End Date Luigi Andersen DO [address] [place] [phone] PCP - General Internal Medicine 10/12/24
== END 2025-04-19 09:07 | disposition home or self-care (01) ==
LOC: HO.BBR 09:06
PROVIDERS: PCP Internal Medicine; Visit Provider Internal Medicine
DX: D45 Polycythemia vera (principal)
CPT/HCPCS: 85018; 99195

== ENCOUNTER 2025-06-09 09:10 | Outpatient (REF) | payer MEDICARE, MEDICAID, SELFPAY ==
--- OUTSIDE RECORDS SUMMARY | 2025-06-09 09:26 | XMS_ITS | Clinical Summary ---
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 Phone Luigi Andersen DO Primary Care Provider [phone] Allergies Active Allergy Reactions Criticality Noted Date [...] Encounters Date Type Department Care Team Description 06/09/2025 Telephone [facility] Hematology Oncology [address] [place] [phone] Bri Carroll MD 05/17/2025 10:15 AM EDT Office Visit [facility] Hematology Oncology [address] [place] [phone] Bri Carroll MD Primary polycythemia (CMS/HCC V24, CMS/HCC V28) (Primary Dx) 05/12/2025 Telephone Gastroenterology - [address] [phone] Marva Paez MD 05/12/2025 Telephone Gastroenterology - [address] [phone] Marva Paez MD 03/29/2025 10:10 AM EDT Office Visit Gastroenterology - [address] [phone] Anahy Bustamante, SAMMI Adenomatous polyp of colon, unspecified part of colon (Primary Dx) from Last 3 Months Surgical [...] Sign Reading Time Taken Comments Blood Pressure 134/77 05/17/2025 10:11 AM EDT Pulse 73 05/17/2025 10:11 AM EDT Temperature 36.8 C (98.3 F) 05/17/2025 10:11 AM EDT Respiratory Rate - - Oxygen Saturation 98% 05/17/2025 10:11 AM EDT Inhaled Oxygen Concentration - - Weight 66.2 kg (146 lb) 05/17/2025 10:11 AM EDT Height 167.6 cm (5' 6 ) 03/29/2025 10:01 AM EDT Body Mass Index 23.57 03/29/2025 10:01 AM EDT Plan of Treatment Upcoming Encounters Date Type Department Care Team ([facility] st Contact Info) Description 08/03/2025 11:00 AM EDT Appointment [facility] Endoscopy [address] [place] [phone] Marva Paez MD [address] [address] 11/16/2025 10:15 AM EST Office Visit [facility] Hematology Oncology [address] [place] [phone] Bri Carroll MD [address] [place] [address] Health Maintenance Due Date Last Done Comments [...] 11/04/2022 COVID-19 Vaccine (7 - Pfizer risk 2023- season) 2025 08/20/2024, 09/06/2023, 10/23/2022, Additional history exists Influenza Vaccine (#1) 2025 , 09/06/2023, 09/05/2022, Additional history exists Hypertension/CHF/CAD Annual BMP Blood Test 05/03/2026 05/03/2025, 10/12/2024 Cholesterol Screening (Lipid Panel) 10/12/2029 10/12/2024 Colorectal Cancer Screening: Colonoscopy 03/31/2035 03/31/2025 RSV Immunization Adult Patients Completed 10/16/2024 HIB [...] Procedure Name Priority Date/Time Associated Diagnosis Comments URINALYSIS WITH REFLEX MICROSCOPIC Routine 05/03/2025 11:32 AM EDT Urinary frequency Polycythemia IGT (impaired glucose tolerance) HTN (hypertension) CBC WITH AUTO DIFFERENTIAL Routine 05/03/2025 11:32 AM EDT Polycythemia vera ([facility]/HCC V24, CMS/[facility] V28) URINALYSIS WITH REFLEX MICROSCOPIC Routine 05/03/2025 11:32 AM EDT Urinary frequency Polycythemia IGT (impaired glucose tolerance) HTN (hypertension) HEMOGLOBIN A1C Routine 05/03/2025 11:32 AM EDT Urinary frequency Polycythemia IGT (impaired glucose tolerance) HTN (hypertension) BASIC METABOLIC PANEL Routine 05/03/2025 11:32 AM EDT Urinary frequency Polycythemia IGT (impaired glucose tolerance) HTN (hypertension) CBC AND DIFFERENTIAL Routine 05/03/2025 11:32 AM EDT Polycythemia vera ([facility]/HCC V24, CMS/[facility] V28) CULTURE URINE Routine 05/03/2025 11:32 AM EDT Urinary frequency Polycythemia IGT (impaired glucose tolerance) HTN (hypertension) EXTERNAL COLONOSCOPY REPORT Routine 03/31/2025 2:53 PM EDT LIPID PANEL WITH REFLEX TO DIRECT LDL Routine 10/12/2024 10:12 AM EST Laboratory tests ordered as part of a complete physical exam (CPE) IGT (impaired glucose tolerance) HTN (hypertension) Urinary urgency from Last 3 Months or Most Recently Relevant to Health Maintenance Results * (ABNORMAL) Urinalysis with reflex microscopic (05/03/2025 11:32 AM EDT) Specific Allen Urine 1.007 1.003 - 1.030 LAB URINALYSIS - AUTOMATED METHOD 05/03/2025 3:37 PM [facility] pH, Urine 7.0 5.0 - 8.0 pH LAB URINALYSIS - AUTOMATED METHOD 05/03/2025 3:37 PM [facility] Leukocytes, Urine Small(A) Negative LAB URINALYSIS - AUTOMATED METHOD 05/03/2025 3:37 PM [facility] Nitrite, Urine Negative Negative LAB URINALYSIS - AUTOMATED METHOD 05/03/2025 3:37 PM [facility] Protein, Urine Negative <=Trace mg/dL LAB URINALYSIS - AUTOMATED METHOD 05/03/2025 3:37 PM [facility] Glucose, Urine Negative Negative mg/dL LAB URINALYSIS - AUTOMATED METHOD 05/03/2025 3:37 PM [facility] Ketones, Urine Negative Negative mg/dL LAB URINALYSIS - AUTOMATED METHOD 05/03/2025 3:37 PM [facility] Urobilinogen, Urine 0.2 0.2 - 1.0 mg/dL LAB URINALYSIS - AUTOMATED METHOD 05/03/2025 3:37 PM [facility] Bilirubin, Urine Negative Negative LAB URINALYSIS - AUTOMATED METHOD 05/03/2025 3:37 PM [facility] Blood, Urine Negative Negative LAB URINALYSIS - AUTOMATED METHOD 05/03/2025 3:37 PM [facility] RBC, Urine 3.2 0 - 4 /HPF LAB URINALYSIS - AUTOMATED METHOD 05/03/2025 3:37 PM [facility] WBC, Urine 1.4 0 - 4 /HPF LAB URINALYSIS - AUTOMATED METHOD 05/03/2025 3:37 PM [facility] Squamous Epithelial, Urine 14 0 - 60 /LPF LAB URINALYSIS - AUTOMATED METHOD 05/03/2025 3:37 PM EDT [facility] Bacteria, Urine Negative Negative /HPF LAB URINALYSIS - AUTOMATED METHOD 05/03/2025 3:37 PM EDT [facility] Hyaline Casts, Urine 0.4 0 - 3 /LPF LAB URINALYSIS - AUTOMATED METHOD 05/03/2025 3:37 PM EDT [facility] Urine Urine specimen obtained by clean catch procedure / Unknown Non-blood Collection / Unknown 05/03/2025 11:32 AM EDT 05/03/2025 11:32 AM EDT Nicolas Malcolm LAB URINE ORDERABLES Final Resul t [facility] [address] [place] [address], * (ABNORMAL) CBC auto differential (05/03/2025 11:32 AM EDT) WBC 8.3 4.8 - 10.8 K/mcL LAB HEMETOLOGY METHOD 05/03/2025 3:40 PM T [facility] RBC 6.40(H) 3.80 - 4.80 M/mcL LAB HEMETOLOGY METHOD 05/03/2025 3:40 PM EDT [facility] Hemoglobin 15.0 11.5 - 16.0 g/dL LAB HEMETOLOGY METHOD 05/03/2025 3:40 PM EDT [facility] Hematocrit 51.2(H) 35.0 - 47.0 % LAB HEMETOLOGY METHOD 05/03/2025 3:40 PM T [facility] MCV 80.3 79.0 - 98.0 FL LAB HEMETOLOGY METHOD 05/03/2025 3:40 PM [facility] MCH 23.5(L) 27.0 - 32.0 pcg LAB HEMETOLOGY METHOD 05/03/2025 3:40 PM EDT [facility] MCHC 29.3(L) 32.0 - 37.0 g/dL LAB HEMETOLOGY METHOD 05/03[facility]2025 [facility] RDW 18.7(H) 11.0 - 15.0 % LAB HEMETOLOGY METHOD 05/03/2025 3:40 PM EDT [facility] Platelets 425(H) 130 - 400 K/mcL LAB HEMETOLOGY METHOD 05/03/2025 3:40 [facility] MPV 10.5 7.0 - 11.0 FL LAB HEMETOLOGY METHOD 05/03/2025 3:40 PM [facility] NRBC 0.0 <1.0 % LAB HEMETOLOGY METHOD 05/03/2025 3:40 PM [facility] NRBC Absolute 0.00 <0.10 K/mcL LAB HEMETOLOGY METHOD 05/03/2025 3:40 PM [facility] Neutrophils Relative 67.3 % LAB HEMETOLOGY METHOD 05/03/2025 3:40 PM [facility] Lymphocytes Relative 21.0 % LAB HEMETOLOGY METHOD 05/03/2025 3:40 PM [facility] Monocytes Relative 8.5 % LAB HEMETOLOGY METHOD 05/03/2025 3:40 PM EDT [facility] Eosinophils Relative 2.0 % LAB HEMETOLOGY METHOD 05/03/2025 3:40 PM EDT [facility] Basophils Relative 0.8 % LAB HEMETOLOGY METHOD 05/03/2025 3:40 PM [facility] Immature Granulocytes Relative 0.4 % LAB HEMETOLOGY METHOD 05/03/2025 3:40 PM EDT [facility] Neutrophils Absolute 5.59 1.50 - 7.00 K/mcL LAB HEMETOLOGY METHOD 05/03/2025 3:40 PM EDT [facility] Lymphocytes Absolute 1.75 1.00 - 5.00 K/mcL LAB HEMETOLOGY METHOD 05/03/2025 3:40 PM EDT [facility] Monocytes Absolute 0.71 0.20 - 1.00 K/mcL LAB HEMETOLOGY METHOD 05/03/2025 3:40 PM EDT [facility] Eosinophils Absolute 0.17 0.00 - 0.50 K/mcL LAB HEMETOLOGY METHOD 05/03/2025 3:40 PM EDT [facility] Basophils Absolute 0.07 0.00 - 0.20 K/mcL LAB HEMETOLOGY METHOD 05/03/2025 3:40 PM EDT [facility] Immature Granulocytes Absolute 0.03 0.00 - 0.03 K/mcL LAB HEMETOLOGY METHOD 05/03/2025 3:40 PM EDT [facility] Blood Venous blood specimen / Unknown Venipuncture / Unknown 05/03/2025 11:32 AM EDT 05/03/2025 11:32 AM EDT us Bri Carroll MD LAB BLOOD ORDERABLES Final R esult [facility] [address] [place] [address], * Culture urine (05/03/2025 11:32 AM EDT) Culture, Urine No growth 05/04/2025 9:39 AM EDT [facility] Urine Urine specimen from urethra / Unknown Non-blood Collection / Unknown 05/03/2025 11:32 AM EDT 05/03/2025 11:32 AM EDT Nicolas Feng LAB MICROBIOLOGY - GENERAL ORDER NATALIE Final Result Performing Organization Address City/[facility]/ZIP Co de Phone Number [facility] [address] [place] [address], [place] [phone] * Hemoglobin A1c (05/03/2025 11:32 AM EDT) [facility] Hemoglobin A1C 5.5 <6.5 % LAB CHEMISTRY METHOD 05/03/2025 9:24 PM EDT [facility] Mean Bld Glu Estim. 111 mg/dL LAB CHEMISTRY METHOD 05/03/2025 9:24 PM EDT [facility] Blood Venous blood specimen / Unknown Venipuncture / Unknown 05/03/2025 11:32 AM EDT 05/03/2025 11:32 AM EDT Nicolas Ankush LAB BLOOD ORDERABLES Final Resul t Performing Organization Address City/[facility]/ZIP Co de Phone Number [facility] [address] [place] [address], [place] [phone] * (ABNORMAL) Basic metabolic panel (05/03/2025 11:32 AM EDT) [facility] Sodium 135 133 - 145 mmol/L LAB CHEMISTRY METHOD 05/03/2025 4:37 PM EDT [facility] Potassium 4.4 3.5 - 5.5 mmol/L LAB CHEMISTRY METHOD 05/03/2025 4:37 PM EDT [facility] Chloride 101 96 - 110 mmol/L LAB CHEMISTRY METHOD 05/03/2025 4:37 PM EDT [facility] CO2 27 21 - 32 mmol/L LAB CHEMISTRY METHOD 05/03/2025 4:37 PM EDT [facility] Anion Gap 7 3 - 11 LAB CHEMISTRY METHOD 05/03/2025 4:37 PM EDT [facility] Glucose 93 70 - 100 mg/dL LAB CHEMISTRY METHOD 05/03/2025 4:37 PM EDT [facility] BUN 19 5 - 25 mg/dL LAB CHEMISTRY METHOD 05/03/2025 4:37 PM EDT [facility] Creatinine 0.85 0.50 - 1.10 mg/dL LAB CHEMISTRY METHOD 05/03/2025 4:37 PM EDT [facility] eGFR 72 >=60 mL/min/1. 73m2 LAB CHEMISTRY METHOD 05/03/2025 4:37 PM EDT [facility] Comment:Calculation based on the Chronic Kidney Disease Epidemiology Collaboration (CKD-EPI) equation refit without adjustment for race. BUN/Creatinine Ratio 22.4 LAB CHEMISTRY METHOD 05/03/2025 4:37 PM EDT [facility] Calcium 10.8(H) 8.5 - 10.5 mg/dL LAB CHEMISTRY METHOD 05/03/2025 4:37 PM EDT [facility] Blood Venous blood specimen / Unknown Venipuncture / Unknown 05/03/2025 11:32 AM EDT 05/03/2025 11:32 AM EDT Nicolas Malcolm LAB BLOOD ORDERABLES Final Resul t [facility] [address] [place] [address], * External Colonoscopy Report (03/31/2025 2:53 PM EDT) Anatomical Region Laterality Modality Endoscopy us Historical Provider GI~PROCEDURE ORDERABLES F inal Result * Lipid panel with reflex to direct LDL (10/12/2024 10:12 AM EST) Cholesterol 166 0 - 200 mg/dL LAB CHEMISTRY METHOD 10/12/2024 12:02 PM EST [facility] Triglycerides 97 0 - 150 mg/dL LAB CHEMISTRY METHOD 10/12/2024 12:02 PM EST [facility] HDL 77 >=40 mg/dL LAB CHEMISTRY METHOD 10/12/2024 12:02 PM EST [facility] LDL Calculated 70 0 - 100 mg/dL LAB CHEMISTRY METHOD 10/12/2024 12:02 PM [facility] VLDL Cholesterol Anthony 19.4 mg/dL LAB CHEMISTRY METHOD 10/12/2024 12:02 PM EST [facility] Non HDL Chol. 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
--- OUTSIDE RECORDS SUMMARY | 2025-06-09 09:27 | XMS_ITS ---
Author Name [facility] Organization Unknown History of Medication Use Medication Directions Dispensed Refills Start Date End Date Stat us oxycodone 5 mg tablet 02/26/2024 completed Procto-Med HC 2.5 % topical cream perineal applicator active Allergies Allergen Reaction Severity Comment Documented Date Source Statu s CODEINE ENS_AONECT Problems Problem Status Onset Date Problem Type Date of Resoluti on Source Synovitis active 2024-02-26 ProblemAct ENS_AONE CT Encounters Encounter Type Encounter Reason Primary Diagnosis Location Date Ambulatory [facility] [place] 02/26/2024 Ambulatory [facility] [place] 02/21/2024
== END 2025-06-09 09:11 | disposition home or self-care (01) ==
LOC: HO.BBR 09:10
PROVIDERS: PCP Internal Medicine; Visit Provider Internal Medicine
DX: D45 Polycythemia vera (principal)
CPT/HCPCS: 85018; 99195

== ENCOUNTER 2025-08-11 08:54 | Outpatient (REF) | payer MEDICARE, MEDICAID, SELFPAY ==
--- OUTSIDE RECORDS SUMMARY | 2025-08-11 10:30 | XMS_ITS | Clinical Summary ---
Author Organization [address] [facility] lding Address 200 [place] [address] Phone Care Team Providers Care Grain Combine Driver Name Role Phone SamariaLuigi saini Primary Care Provider [phone] Allergies Active Allergy Reactions Criticality Noted Date [...] g 1 (one) time each day. Active polyethylene glycol (Golytely) 236-22.74-6.74 -5.86 gram solution Take 4L by mouth once for one dose. May substitue any PEG. Starting at 2PM the day before your procedure drink 1 8oz glasses at your own pace until you complete half of the gallon. Finish 2nd half of the gallon at 8PM. 4000 mL 5 Active bisacodyL (DULCOLAX) 5 mg EC tablet Take 2 tablets by mouth right before beginning bowel prep. See instructions provided by the office 2 tablet 5 Active Encounters Date Type Department Care Team Description 08/04/2025 Telephone Gastroenterology - [address] [facility] [address] [place] [address] Senait Gao MA 08/04/2025 Telephone Gastroenterology - [address] [address] Senait Gao [place] 08/03/2025 11:04 AM EDT Anesthesia Event [facility] Endoscopy [address] [place] [address] Pavan Lopez MD Swanson, Mona, CRNA 08/03/2025 10:14 AM EDT - 08/03/2025 11:59 PM EDT Hospital Encounter [facility] Endoscopy [address] [place] [address] Marva Paez MD Swanson, Mona, CRNA Spencer, Mark A, MD Adenomatous polyp of colon, unspecified part of colon Discharge Disposition: Home or Self Care 06/09/2025 Telephone [facility] Hematology Oncology [address] [place] [address] Bri Carroll MD 05/17/2025 10:15 AM EDT Office Visit [facility] Hematology Oncology [address] [place] [address] Bri Carroll MD Primary polycythemia (CMS/HCC V24, CMS/HCC V28) (Primary Dx) 05/12/2025 Telephone Gastroenterology - [address] [address] Marva Paez MD 05/12/2025 Telephone Gastroenterology - [address] [address] Marva Paez MD from Last 3 Months Surgical History Surgery [...] drink = 0.6 oz pur e alcohol) Interpersonal Safety Answer Date Record ed Physical Abuse 08/03/2025 Verbal Abuse 08/03/2025 Comments No Sex and Gender Information Value Date Recorded Sex Assigned at Female 12/25/2024 10:38 AM EST Legal Sex Female 2:32 AM EST Gender Identity Female 12/25/2024 10:38 AM EST Sexual Orientation Not on file Obstetrics History Last Filed Vital Signs Vital Sign Reading Time Taken Comments Blood Pressure 125/78 08/03/2025 11:51 AM EDT Pulse 81 08/03/2025 11:51 AM EDT Temperature 36.7 C (98 F) 08/03/2025 11:31 AM EDT Respiratory Rate 18 08/03/2025 11:51 AM EDT Oxygen Saturation 99% 08/03/2025 11:51 AM EDT Inhaled Oxygen Concentration - - Weight 64.9 kg (143 lb) 08/03/2025 10:36 AM EDT Height 167.6 cm (5' 6 ) 08/03/2025 10:36 AM EDT Body Mass Index 23.08 08/03/2025 10:36 AM EDT Plan of Treatment Upcoming Encounters Date Type Department Care Team (Late st Contact Info) Description 11/16/2025 10:15 AM EST Office Visit [facility] Hematology Oncology [address] [place] [phone] Bri Carroll MD [address] [place] [address] Health Maintenance Due Date Last Done Comments DTaP,Tdap,and Td Vaccines (1 - Tdap) 1969 Pneumococcal Vaccine: 50+ Years (1 of 2 - PCV) 1969 Zoster Vaccines (1 of 2) 1969 Hepatitis C Screening 11/04/2022 Medicare Annual Wellness Visit 11/04/2022 Osteoporosis Screening (Bone Density Screening) 11/04/2022 Social Influencers of Health Screening 11/04/2022 Depression Screening 12/02/2024 COVID-19 Vaccine (7 - Pfizer risk 2024-25 season) 2025 08/20/2024, 09/06/2023, 10/23/2022, Additional history exists Influenza Vaccine (#1) 2025 , 09/06/2023, 09/05/2022, Additional history exists Hypertension/CHF/CAD Annual BMP Blood Test 05/03/2026 05/03/2025, 10/12/2024 Falls Risk Assessment 08/03/2026 08/03/2025 Cholesterol Screening (Lipid Panel) 10/12/2029 10/12/2024 Colorectal Cancer Screening: Colonoscopy 08/03/2035 08/03/2025, 03/31/2025 RSV Immunization Adult Patients Completed 10/16/2024 [...] Procedure Name Priority Date/Time Associated Diagnosis Comments COLONOSCOPY Routine 08/03/2025 11:30 AM EDT Adenomatous polyp of colon, unspecified part of colon TISSUE EXAM Routine 08/03/2025 11:26 AM EDT Adenomatous polyp of colon, unspecified part of colon BASIC METABOLIC PANEL Routine 05/03/2025 11:32 AM EDT Urinary frequency Polycythemia IGT (impaired glucose tolerance) HTN (hypertension) LIPID PANEL WITH REFLEX TO DIRECT LDL Routine 10/12/2024 10:12 AM EST Laboratory tests ordered as part of a complete physical exam (CPE) IGT (impaired glucose tolerance) HTN (hypertension) Urinary urgency from Last 3 Months or Most Recently Relevant to Health Maintenance Results * COLONOSCOPY Anesthesia - MAC; [facility] ENDOSCOPY (08/03/2025 11:30 AM EDT) Anatomical Region Laterality Modality Other 08/03/2025 11:0 1 AM EDT Impressions 08/03/2025 11:30 AM EDT - The examined portion of the ileum was normal. - Diverticulosis in the sigmoid colon. - One 3 mm polyp in the rectum, removed with a cold snare. Resected and retrieved. - Internal hemorrhoids. Recommendation: - Await pathology results. - Repeat colonoscopy for surveillance based on pathology results. Narrative 08/03/2025 11:30 AM EDT [facility] GI Patient Name: Aurelia Keating Procedure Date: 08/03/2025 11:01 AM Date of : 1950 Age: 75 Gender: Female Note Status: Finalized Attending MD: Marva Paez MD, Procedure Date No Time: 08/03/2025 Procedure: Colonoscopy Indications: High risk colon cancer surveillance: Personal history of multiple (3 or more) adenomas Providers: Marva Paez MD Referring MD: Luigi Andersen DO Medicines: Propofol per Anesthesia Complications: No immediate complications. Estimated Blood Loss: Estimated blood loss: none. Procedure: Pre-Anesthesia Assessment: - ASA Grade Assessment: II - A patient with mild systemic disease. After I obtained informed consent, the scope was passed under direct vision. Throughout the procedure, the patient's blood pressure, pulse, and oxygen saturations were monitored continuously.The Olympus Pediatric Colonoscope was introduced through the anus and advanced to the terminal ileum. The colonoscopy was performed without difficulty. The patient tolerated the procedure well. The quality of the bowel preparation was good. Findings: The perianal and digital rectal examinations were normal. The terminal ileum appeared normal. A few medium-mouthed diverticula were found in the sigmoid colon. A 3 mm polyp was found in the rectum. The polyp was sessile. The polyp was removed with a cold snare. Resection and retrieval were complete. Internal hemorrhoids were found during retroflexion. The hemorrhoids were Grade I (internal hemorrhoids that do not prolapse). Procedure Code(s): --- Professional --- 24575, Colonoscopy, flexible; with removal of tumor(s), polyp(s), or other lesion(s) by snare technique Diagnosis Code(s): --- Professional --- Z86.010, Personal history of colonic polyps D12.8, Benign neoplasm of rectum CPT copyright 2020 [employer]. All rights reserved. The codes documented in this report are preliminary and upon icd 9 coder review may be revised to meet current compliance requirements. Marva Paez MD 08/03/2025 11:30:33 AM This report has been signed electronically.Marva Paez MD Number of Addenda: 0 Note Initiated On: 08/03/2025 11:01 AM Scope In: Scope Out: Endoscopy Department at [facility] - [address] [place] [id number] Procedure Note Marva Paez MD - 08/03/2025 [facility] GI Patient Name: Aurelia Keating Procedure Date: 08/03/2025 11:01 AM Date of : 1950 Age: 75 Gender: Female Note Status: Finalized Attending MD: Marva Paez MD, Procedure Date No Time: 08/03/2025 Procedure: Colonoscopy Indications: High risk colon cancer surveillance: Personalhistory of multiple (3 or more) adenomas Providers: Marva Paez MD Referring MD: Luigi Andersen DO Medicines: Propofol per Anesthesia Complications: No immediate complications. Estimated Blood Loss: Estimated blood loss: none. Procedure: Pre-Anesthesia Assessment: - ASA Grade Assessment: II - A patient with mild systemic disease. After I obtained informed consent, the scope was passed under direct vision. Throughout theprocedure, the patient's blood pressure, pulse, and oxygen saturations were monitored continuously.The Olympus Pediatric Colonoscope was introduced through theanus and advanced to the terminal ileum. The colonoscopy was performed without difficulty. The patient tolerated the procedure well. The quality of thebowel preparation was good. Findings: The perianal and digital rectal examinations were normal. The terminal ileum appeared normal. A few medium-mouthed diverticula were found in the sigmoid colon. A 3 mm polyp was found in the rectum. The polyp was sessile. The polyp was removed with a cold snare. Resection and retrieval were complete. Internal hemorrhoids were found duringretroflexion. The hemorrhoids were Grade I (internal hemorrhoids that do not prolapse). Procedure Code(s): --- Professional --- 16690, Colonoscopy, flexible; with removal of tumor(s), polyp(s), or other lesion(s) by snare technique Diagnosis Code(s): --- Professional --- Z86.010, Personal history of colonic polyps D12.8, Benign neoplasm of rectum CPT copyright 2020 [employer]. All rights reserved. The codes documented in this report are preliminary and upon icd 9 coder reviewmay be revised to meet current compliance requirements. Marva Paez MD 08/03/2025 11:30:33 AM This report has been signed electronically.Marva Paez MD Number of Addenda: 0 Note Initiated On: 08/03/2025 11:01 AM Scope In: Scope Out: Endoscopy Department at [facility] - [address] [place] [phone] IMPRESSION: - The examined portion of the ileum was normal. - Diverticulosis in the sigmoid colon. - One 3 mm polyp in the rectum, removed with a cold snare. Resected and retrieved. - Internal hemorrhoids. Recommendation: - Await pathology results. - Repeat colonoscopy for surveillance based on pathology results. us Marva Paez MD GI~PROCEDURE ORDERABLES Final Result * Tissue exam (08/03/2025 11:26 AM EDT) Final Diagnosis A. Large Intestine, Rectum, polyp x1: - Hyperplastic polyp. 08/04/2025 10:35 AM EDT [facility] LAB Gross Description A. Large Intestine, Rectum, polypX1: Labeled LI rectum polyp x 1 . Received in formalin are two irregular thompson-pink mucosal tissue fragments, measuring 0.1 cm and 0.3 cm in greatest dimension, which are wrapped in paper and submitted in toto in one cassette, two pieces, multiple levels on one slide. ABBY 08/04/2025 10:[address] [facility] Disclaimer Unless otherwise specified, all tissue is 10% NB formalin fixed and paraffin embedded. 08/04/2025 10:[address] [facility] Tissue Rectum structure / Unknown 08/03/2025 11:26 AM EDT 08/03/2025 1:18 PM EDT us Marva Paez MD LAB PATHOLOGY ORDERABLES Final Result [facility] [address] [place] [address], [place] [phone] * (ABNORMAL) Basic metabolic panel (05/03/2025 11:32 AM EDT) Sodium 135 133 - 145 mmol/L LAB CHEMISTRY METHOD 05/03/2025 4:37 PM [facility] Potassium 4.4 3.5 - 5.5 mmol/L LAB CHEMISTRY METHOD 05/03/2025 4:37 PM [facility] Chloride 101 96 - 110 mmol/L LAB CHEMISTRY METHOD 05/03/2025 4:37 PM [facility] CO2 27 21 - 32 mmol/L LAB CHEMISTRY METHOD 05/03/2025 4:37 PM [facility] Anion Gap 7 3 - 11 LAB CHEMISTRY METHOD 05/03/2025 4:37 PM [facility] Glucose 93 70 - 100 mg/dL LAB CHEMISTRY METHOD 05/03/2025 4:37 PM [facility] BUN 19 5 - 25 mg/dL LAB CHEMISTRY METHOD 05/03/2025 4:37 PM [facility] Creatinine 0.85 0.50 - 1.10 mg/dL LAB CHEMISTRY METHOD 05/03/2025 4:[address] [facility] eGFR 72 >=60 mL/min/1. 73m2 LAB CHEMISTRY METHOD 05/03/2025 4:[address] [facility] Comment:Calculation based on the Chronic Kidney Disease Epidemiology Collaboration (CKD-EPI) equation refit without adjustment for race. BUN/Creatinine Ratio 22.4 LAB CHEMISTRY METHOD 05/03/2025 4:[address] [facility] Calcium 10.8(H) 8.5 - 10.5 mg/dL LAB CHEMISTRY METHOD 05/03/2025 4:[address] [facility] Blood Venous blood specimen / Unknown Venipuncture / Unknown 05/03/2025 11:32 AM EDT 05/03/2025 11:32 AM EDT Nicolas Malcolm LAB BLOOD ORDERABLES Final Resul t [facility] [address] [place] [address], [place] [phone] * Lipid panel with reflex to direct LDL (10/12/2024 10:12 AM EST) Cholesterol 166 0 - 200 mg/dL LAB CHEMISTRY METHOD 10/12/2024 12:[address] [facility] Triglycerides 97 0 - 150 mg/dL LAB CHEMISTRY METHOD 10/12/2024 12:[address] [facility] HDL 77 >=40 mg/dL LAB CHEMISTRY METHOD 10/12/2024 12:[address] [facility] LDL Calculated 70 0 - 100 mg/dL LAB CHEMISTRY METHOD 10/12/2024 12:02 PM [facility] VLDL Cholesterol Anthony 19.4 mg/dL LAB CHEMISTRY METHOD 10/12/2024 12:[address] [facility] Non HDL Chol. (LDL+VLDL) 89 <145 mg/dL LAB CHEMISTRY METHOD 10/12/2024 12:[address] [facility] Chol/HDL Ratio 2.2 0.0 - 4.4 LAB CHEMISTRY METHOD 10/12/2024 12:[address] [facility] Blood Venous blood specimen / Unknown Venipuncture / Unknown 10/12/2024 10:12 AM EST 10/12/2024 10:13 AM EST us Nicolas Malcolm LAB BLOOD ORDERABLES Final Resul t [facility] [address] [place] [address], from Last 3 Months or Most Recently Relevant to Health Maintenance Insurance MEDICAID - [place] MEDICARE Care Teams Grain Combine Driver Relationship Specialty Start Date End Date Luigi Andersen DO [address] [place] [phone] PCP - General Internal Medicine 10/12/24
== END 2025-08-11 08:55 | disposition home or self-care (01) ==
LOC: HO.BBR 08:54
PROVIDERS: PCP Internal Medicine; Visit Provider Internal Medicine
DX: D45 Polycythemia vera (principal)
CPT/HCPCS: 85014; 85018; 99195

== ENCOUNTER 2025-10-11 09:03 | Outpatient (REF) | payer MEDICARE, MEDICAID, SELFPAY ==
--- OUTSIDE RECORDS SUMMARY | 2025-10-11 09:39 | XMS_ITS | Clinical Summary ---
Author Organization [address] [facility] Address [address] [place] [address] Phone Care Team Providers Care Dry Dip Worker Name Role Phone Luigi Andersen Primary Care Provider [phone] Allergies Active Allergy Reactions Criticality Noted Date [...] Encounters Date Type Department Care Team Description 09/14/2025 Telephone Gastroenterology - [place] [address] [facility] [address] [place] [address] Morales Rdz MD 08/04/2025 Telephone Gastroenterology - [address] [facility] [address] [place] [address] Senait Gao MA 08/04/2025 Telephone Gastroenterology - [address] [address] Senait Gao [place] 08/03/2025 11:04 AM EDT Anesthesia Event [facility] Endoscopy [address] [place] [phone] Pavan Lopez MD Swanson, Mona, CRNA 08/03/2025 10:14 AM EDT - 08/03/2025 11:59 PM EDT Hospital Encounter [facility] Endoscopy [address] [place] [phone] Marva Paez MD Swanson, Mona, CRNA Spencer, Mark A, MD Adenomatous polyp of colon, unspecified part of colon Discharge Disposition: Home or Self Care from Last 3 Months Surgical History Surgery [...] Safety Answer Date Record ed Physical Abuse Unrecognized value 08/03/2025 Verbal Abuse Unrecognized value 08/03/2025 Comments No Sex and Gender Information [...] Description 11/16/2025 10:15 AM EST Office Visit [facility] Hematology Oncology [address] [place] [address] Bri Carroll MD [address] [place] [address] Health Maintenance Due Date Last Done Comments DTaP,Tdap,and Td Vaccines (1 - Tdap) 1969 Pneumococcal Vaccine: 50+ Years (1 of 2 - PCV) 1969 Zoster Vaccines (1 of 2) 1969 Hepatitis C Screening 11/04/2022 Medicare Annual Wellness Visit 11/04/2022 Osteoporosis Screening (Bone Density Screening) 11/04/2022 Social Influencers of Health Screening 11/04/2022 Depression Screening 12/02/2024 COVID-19 Vaccine (7 - Pfizer risk 2023- season) 2025 08/20/2024, 09/06/2023, 10/23/2022, Additional history exists Influenza Vaccine (#1) 2025 , 09/06/2023, 09/05/2022, Additional history exists Falls Risk Assessment 08/03/2026 08/03/2025 Cholesterol Screening (Lipid Panel) 10/12/2029 10/12/2024 Colorectal Cancer Screening: Colonoscopy 08/03/2030 08/03/2025, 03/31/2025 RSV Immunization Adult Patients Completed [...] polyp of colon, unspecified part of colon LIPID PANEL WITH REFLEX TO DIRECT LDL Routine 10/12/2024 10:12 AM EST Laboratory tests ordered as part of a complete physical exam (CPE) IGT (impaired glucose tolerance) HTN (hypertension) Urinary urgency from Last 3 Months or Most Recently Relevant to Health Maintenance Results * COLONOSCOPY Anesthesia - MAC; [facility] ENDOSCOPY (08/03/2025 11:30 AM EDT) Anatomical Region [...] pathology results. Narrative 08/03/2025 11:30 AM EDT [facility] GI Patient Name: Aurelia Keating [...] not prolapse). Procedure Code(s): --- Professional --- 94850, Colonoscopy, flexible; with removal of tumor(s), polyp(s), or other lesion(s) by snare technique Diagnosis Code(s): --- Professional --- Z86.010, Personal history of colonic polyps D12.8, Benign neoplasm of rectum CPT copyright 2020 [employer]. All rights reserved. The codes documented in this report are preliminary and upon transition manager review may be revised to meet current compliance requirements. Marva Paez MD 08/03/2025 11:30:33 AM This report has been signed electronically.Marva Paez MD Number of Addenda: 0 Note Initiated On: 08/03/2025 11:01 AM Scope In: Scope Out: Endoscopy Department at [facility] - [address] [place] [phone] Procedure Note Marva Paez MD - 08/03/2025 [facility] GI Patient Name: Aurelia Keating [...] not prolapse). Procedure Code(s): --- Professional --- 33274, Colonoscopy, flexible; with removal of tumor(s), polyp(s), or other lesion(s) by snare technique Diagnosis Code(s): --- Professional --- Z86.010, Personal history of colonic polyps D12.8, Benign neoplasm of rectum CPT copyright 2020 [employer]. All rights reserved. The codes documented in this report are preliminary and upon transition manager reviewmay be revised to meet current compliance requirements. Marva Paez MD 08/03/2025 11:30:33 AM This report has been signed electronically.Marva Paez MD Number of Addenda: 0 Note Initiated On: 08/03/2025 11:01 AM Scope In: Scope Out: Endoscopy Department at [facility] - [address] [place] [phone] IMPRESSION: - The examined portion of the ileum was normal. - Diverticulosis in the sigmoid colon. - One 3 mm polyp in the rectum, removed with a cold snare. Resected and retrieved. - Internal hemorrhoids. Recommendation: - Await pathology results. - Repeat colonoscopy for surveillance based on pathology results. Marva Paez MD GI~PROCEDURE ORDERABLES Final Result * Tissue exam (08/03/2025 11:26 AM EDT) Final Diagnosis A. Large Intestine, Rectum, polyp x1: - Hyperplastic polyp. 08/04/2025 10:35 AM EDT [facility] Gross Description A. Large Intestine, Rectum, polypX1: Labeled LI rectum polyp x 1 . Received in formalin are two irregular thompson-pink mucosal tissue fragments, measuring 0.1 cm and 0.3 cm in greatest dimension, which are wrapped in paper and submitted in toto in one cassette, two pieces, multiple levels on one slide. ABBY 08/04/2025 10:35 AM EDT [facility] Disclaimer Unless otherwise specified, all tissue is 10% NB formalin fixed and paraffin embedded. 08/04/2025 10:35 AM EDT [facility] Tissue Rectum structure / Unknown 08/03/2025 11:26 AM EDT 08/03/2025 1:18 PM EDT us Marva Paez MD LAB PATHOLOGY ORDERABLES Final Result [facility] [address] [place] [address], * Lipid panel with reflex to direct LDL (10/12/2024 10:12 AM EST) Cholesterol 166 0 - 200 mg/dL LAB CHEMISTRY METHOD 10/12/2024 12:02 PM [facility] Triglycerides 97 0 - 150 mg/dL LAB CHEMISTRY METHOD 10/12/2024 12:02 PM [facility] HDL 77 >=40 mg/dL LAB CHEMISTRY METHOD 10/12/2024 12:02 PM [facility] LDL Calculated 70 0 - 100 mg/dL LAB CHEMISTRY METHOD 10/12/2024 12:02 PM [facility] VLDL Cholesterol Anthony 19.4 mg/dL LAB CHEMISTRY METHOD 10/12/2024 12:02 PM [facility] Non HDL Chol. (LDL+VLDL) 89 <145 mg/dL LAB CHEMISTRY METHOD 10/12/2024 12:02 PM [facility] Chol/HDL Ratio 2.2 0.0 - 4.4 LAB CHEMISTRY METHOD 10/12/2024 12:02 PM [facility] Blood Venous blood specimen / Unknown Venipuncture / Unknown 10/12/2024 10:12 AM EST 10/12/2024 10:13 AM EST Nicolas Malcolm LAB BLOOD ORDERABLES Final Resul t [facility] [address] [place] [address], from Last 3 Months or Most Recently Relevant to Health Maintenance Insurance [place] - [place]ARE Care Teams Dry Dip Worker Relationship Specialty Start Date End Date Luigi Andersen DO [address] [place] [phone] PCP - General Internal Medicine 10/12/24
--- OUTSIDE RECORDS SUMMARY | 2025-10-11 09:39 | XMS_ITS | Encounter Summary ---
Author Organization [facility] Address [address] [place] [address] Care Team Providers Care Marine Superintendent Name Role Phone Luigi Andersen DO Primary Care Provider [phone] Reason for Visit * Reason Onset Date Comments Appointment 09/14/2025 Encounter Details Date Type Department Care Team ([facility] st Contact Info) Description 09/14/2025 Telephone Gastroenterology - [place] [address] [facility] 175 [facility] [address] [place] [phone] Morales Rdz MD 299 [facility] [address] [place] [address] Social History Tobacco Use Types Packs/Day Years [...] on file documented as of this encounter Progress Notes * [facility] - 09/14/2025 1:05 PM EDT Received records from Dr. Andersen's office - Patient is established - Called patient to book with new provider for Prev Sassi Pt / for Worsening constpation and postive heme occult. Patient declined and said as of right now she is doing fine and will reach back out to us if need be. documented in this encounter Plan of Treatment Upcoming Encounters Date Type Department Care Team (Late st Contact Info) Description 11/16/2025 10:15 AM EST Office Visit [facility] Hematology Oncology [address] [place] [address] Bri Carroll MD [address] [place] [address] documented as of this encounter Visit Diagnoses Not on filedocumented in this encounter Care Teams Marine Superintendent Relationship Specialty Start Date End Date Luigi Andersen DO [address] [place] [phone] PCP - General Internal Medicine 10/12/24 documented as of this encounter
== END 2025-10-11 09:04 | disposition home or self-care (01) ==
LOC: HO.BBR 09:03
PROVIDERS: PCP Internal Medicine; Visit Provider Internal Medicine
DX: D45 Polycythemia vera (principal)
CPT/HCPCS: 85014; 85018; 99195